=== PATIENT | female | born 1950 | race Caucasian/White ===

== ENCOUNTER 2017-01-24 17:09 | Emergency (ER) | payer OTHER ==
[~2017-01-24] VITALS: Ht 162.6 cm; Wt 88.3 kg
[~2017-01-24 17:09] MED LIST: ASPI81TA28 PO; ATOR10TA88 PO; CLTP PO; EFFSR75 PO; LEVO100T84 PO; NAPR250T2 PO; OMEG10007 PO; PRLSR20 PO; VENL150C56 PO
[2017-01-24 17:13] VITALS: TEMP 36.7; Ht 162.6 cm; Wt 88.3 kg
[2017-01-24] MEDS ORDERED: HYDR12.55 PO (17:33)
[2017-01-24] MEDS ORDERED: CALC-354 PO (17:35)
[2017-01-24] MEDS ORDERED: LEVO100T7 PO (17:36)
[2017-01-24] MEDS ORDERED: VENL75CA73 PO (17:37)
[2017-01-24 18:58] VITALS: BP 143/82; PULSE 83; O2SAT 96
--- NOTE | 2017-01-24 19:13 | DIAGNOSTIC IMAGING REPORT ---
LEFT VENOUS DOPP LOWER EXT UNILAT CLINICAL HISTORY: LLE pain pain. Edema. TECHNIQUE: Venous Doppler COMPARISON STUDY: None FINDINGS: Normal study IMPRESSION: Normal study The above report was generated using voice recognition software. It may contain grammatical, syntax or spelling errors. Electronically signed by: Wilton Metzger M.D. 01/24/2017 7:12 PM Dictated Date/Time: 01/24/2017 7:11 PM
--- NOTE | 2017-01-24 19:16 | DIAGNOSTIC IMAGING REPORT ---
LEFT KNEE 1 OR 2 VIEWS ROUTINE CLINICAL HISTORY: L knee pain pain COMPARISON: None. DISCUSSION: The bones and joint spaces appear intact. There is no evidence of fracture, dislocation or bony disease. Minimal degenerative change. Minimal reactive osteophytes from the superior patella IMPRESSION: Minimal degenerative change. No acute process. The above report was generated using voice recognition software. It may contain grammatical, syntax or spelling errors. Electronically signed by: Wilton Metzger M.D. 01/24/2017 7:15 PM Dictated Date/Time: 01/24/2017 7:15 PM
--- NOTE | 2017-01-24 20:02 | EMERGENCY ROOM VISIT NOTE ---
ED Visit Note First contact with patient: 17:51 I have personally evaluated this patient examined her and reviewed the pertinent labs and data. I have discussed the case with Floyd Guzman, the physician assistant womens volleyball coach and agree with the plan. Please refer to the PA note. This patient comes in with pain in the posterior left knee. It got worse after some minimal trauma. She has no redness or warmth or swelling. Nothing to suggests an infection. The joint x-rays were unremarkable. on my exam, she is neurologically and neurovascularly intact with 2+ distal pulses. Ultrasound was unremarkable of the leg shows no evidence of DVT. X-rays were unremarkable. This may be more of a ligamentous or muscular strain. She should follow up with the orthopedist or regular doctor this week for recheck.
--- NOTE | 2017-01-24 23:27 | EMERGENCY ROOM VISIT NOTE ---
History First contact with patient: 17:51 Chief Complaint: LEG PAIN,LEG INJURY Stated Complaint: PAIN IN LEFT LEG History of Present Illness The patient is a 67 year old female who presents to the Emergency Room with complaints of left knee pain. The patient reports that she was walking up steps this afternoon and felt something pop in her knee. However, the patient reports that she also has had pain radiating from her left buttock to her ankle over the past 1.5 weeks. She denies any significant history of chronic back pain, but does know that she has arthritis in her neck and back. She has seen a chiropractor in the past for her back. The patient reports that she had a right knee arthroscopy performed last fall by Dr. Hoffmann for a torn meniscus. The patient denies any history of significant left knee arthritis or pain. The patient denies any left lower extremity weakness, foot drop, saddle anesthesias or bladder/bowel difficulties/incontinence. Weightbearing worsens the patient' s discomfort to a 10 out of 10. She currently rates her discomfort a 7 out of 10 on my exam. Review of Systems 10 system review was performed and was negative except for pertinent positives and negatives as indicated in history of present illness Past Medical/Surgical History Medical Problems: (1) Depressive Disorder Nec (2) GERD (gastroesophageal reflux disease) Surgical Problems: (1) History of arthroscopy of right knee (2) History of carpal tunnel release Family History FH: cancer FH: diabetes mellitus FH: gallbladder disease FH: heart disease FH: hypertension Social History Smoking Status: Never Smoker Alcohol Use: none Marital Status: Occupation Status: retired Current/Historical Medications Scheduled Aspirin (Aspirin Ec), 81 MG PO DAILY Atorvastatin (Lipitor), 10 MG PO QPM Calcium Carbonate-Cholecalcife (Caltrate 600+D), 1 TAB PO BID Fish Oil ([place]-3), 1 CAP PO BID Hydrochlorothiazide (Hydrochlorothiazide), 12.5 MG PO DAILY Levothyroxine Sodium (Levothyroxine Sodium), 100 MCG PO DAILY Omeprazole (Prilosec), 20 MG PO DAILY Venlafaxine Hcl (Effexor Extended Rel), 150 MG PO DAILY Venlafaxine Hcl (Venlafaxine Extended Rel), 75 MG PO DAILY Miscellaneous Medications Naproxen (Naprosyn), 250 MG PO Allergies Coded Allergies: Penicillins (Verified Allergy, Unknown, 01/24/17) Sulfa Drugs (Verified Allergy, Unknown, 01/24/17) Physical Exam Vital Signs Date Time Temp Pulse Resp B/P (MAP) Pulse Ox O2 Delivery O2 Flow Rate FiO2 01/24/17 18:58 83 18 143/82 96 Room Air 01/24/17 17:13 36.7 88 16 150/77 95 Room Air Physical Exam CONSTITUTIONAL: Healthy and well nourished. Alert and oriented X 3 with positive affect. Patient does not appear in any acute distress on exam. HEENT: Normocephalic, atraumatic. Pupils equal, round and reactive. NECK: Full active range of motion without discomfort. RESPIRATORY: Clear to auscultation bilaterally with no wheezing, crackles, rhonchi or stridor. CARDIOVASCULAR: Regular rate and rhythm with no murmurs, rubs or gallops. GASTROINTESTINAL: Bowel sounds present in all quadrants. MUSCULOSKELETAL: Examination of the left knee does not show any obvious joint effusion, ecchymosis or deformity. She has no focal tenderness through the joint lines. She has mild tenderness over the posterior knee and hamstrings. She also has mild tenderness through the upper gastrocnemius region. The muscle is soft and supple. No tenderness to palpation through the Achilles tendon. She has no knee ligamentous instability on exam, and has full range of motion without discomfort or crepitance. Peripatellar tenderness to palpation. Negative logroll. Negative sitting straight leg raise. No focal tenderness to palpation through the left SI joint or sciatic notch. Pedal pulses are intact. Ankle plantar/dorsiflexion strength is 5 out of 5 and symmetric bilaterally. INTEGUMENTARY: No rash or other significant dermatologic conditions noted. NEUROLOGIC: No focal neurologic deficits noted. Lower extremity deep tendon reflexes are 2+ and symmetric bilaterally. Left foot and toes are sensory intact. Medical Decision & Procedures ER Provider Diagnostic Interpretation: My interpretation of left knee x-rays shows minimal degenerative changes without evidence for obvious joint effusion, fractures or dislocation. Radiologist report is as follows: LEFT KNEE 1 OR 2 VIEWS ROUTINE CLINICAL HISTORY: L knee pain pain COMPARISON: None. DISCUSSION: The bones and joint spaces appear intact. There is no evidence of fracture, dislocation or bony disease. Minimal degenerative change. Minimal reactive osteophytes from the superior patella IMPRESSION: Minimal degenerative change. No acute process. Venous ultrasound of the left lower extremity is negative for deep vein thrombosis. Radiologist report is as follows: LEFT VENOUS DOPP LOWER EXT UNILAT CLINICAL HISTORY: LLE pain pain. Edema. TECHNIQUE: Venous Doppler COMPARISON STUDY: None FINDINGS: Normal study IMPRESSION: Normal study ED Course Patient history and physical exam were performed. Nurse's notes were reviewed. Vital signs were reviewed and normal. The patient refused any analgesics on initial exam. X-rays of the left knee were normal. Venous ultrasound of the left lower extremity was negative for deep vein thrombosis. I did advise the patient that her pain could be from several different etiologies, including tendinitis, internal derangement of the left knee, lumbar radiculitis or other musculoskeletal etiologies of the leg. Her venous ultrasound was negative for deep vein thrombosis. The patient reports that she still has crutches at home from her prior knee x-ray. She refused any immobilizer. She was encouraged to alternate ibuprofen and Tylenol for pain relief. She refused any prescription analgesics. She will follow up with Dr. Hoffmann for further reevaluation and management. The patient was happy with plan of care, voiced understanding of all discharge instructions, and rated her pain a 5 out of 10 at the conclusion of my exam. Medical Decision See previous section Impression Primary Impression: Pain of left lower extremity Departure Information Referrals Janell Royal PA-C (PCP) Patient Instructions My [facility]
== END 2017-01-24 20:10 | disposition home or self-care (01) ==
LOC: C.EDB 17:09 → C.EDD 20:10
DX: M25.562 Pain in left knee (principal); F32.9 Major depressive disorder, single episode, unspecified; K21.9 Gastro-esophageal reflux disease without esophagitis; Z96.651 Presence of right artificial knee joint; Z79.82 Long term (current) use of aspirin; Z79.899 Other long term (current) drug therapy; Z88.0 Allergy status to penicillin; Z88.2 Allergy status to sulfonamides; Z80.9 Family history of malignant neoplasm, unspecified; Z83.79 Family history of other diseases of the digestive system; Z83.3 Family history of diabetes mellitus; Z82.49 Family history of ischemic heart disease and other diseases of the circulatory system

== ENCOUNTER → 2017-03-27 | Outpatient (CLI) | payer OTHER ==
[~2017-03-27] MED LIST changes: +CALC-354 PO; -CLTP PO; -EFFSR75 PO; +HYDR12.55 PO; +LEVO100T7 PO; -LEVO100T84 PO; +VENL75CA73 PO
--- NOTE | 2017-03-27 16:09 | MAMMOGRAPHY REPORT ---
BILATERAL DIGITAL SCREENING MAMMOGRAM TOMOSYNTHESIS WITH CAD: 03/27/2017 CLINICAL HISTORY: Routine screening. Patient has no complaints. TECHNIQUE: Breast tomosynthesis in addition to standard 2D mammography was performed. Current study was also evaluated with a Computer Aided Detection (CAD) system. COMPARISON: Comparison is made to exams dated: 03/26/2015 mammogram, 08/17/2013 mammogram, 03/17/2012 tod mogram, 01/30/2011 mammogram, 12/05/2009 mammogram - [facility], and 11/17/2008. BREAST COMPOSITION: The tissue of both breasts is heterogeneously dense, which may obscure small mas ses. FINDINGS: No suspicious masses, calcifications, or areas of architectural distortion are noted in ei ther breast. There has been no significant interval change compared to prior exams. IMPRESSION: ACR BI-RADS CATEGORY 1: NEGATIVE There is no mammographic evidence of malignancy. A 1 year screening mammogram is recommended. The pa tient will receive written notification of the results. Approximately 10% of breast cancers are not detected with mammography. A negative mammographic report should not delay biopsy if a clinically suggestive mass is present. Mireille Cruz M.D. ah/:03/27/2017 15:15:51 Social Insurance Administrator: Karen BOLANOS(Anton)(M), [facility] letter sent: Normal 1/2 BI-RADS Code: ACR BI-RADS Category 1: Negative
== END | disposition home or self-care (01) ==
LOC: C.MAMM 14:23
PROVIDERS: ATTEND Physician Assistant
DX: Z12.31 Encounter for screening mammogram for malignant neoplasm of breast (principal)

== ENCOUNTER → 2018-02-08 | Outpatient (CLI) | payer OTHER ==
[~2018-02-08] MED LIST changes: +ALPPOPS5 OP; +ATOR10TA82 PO; -ATOR10TA88 PO; +BIMA0.01 OP; +DORZ1SOL6 OP; -NAPR250T2 PO
--- NOTE | 2018-02-08 12:03 | DIAGNOSTIC IMAGING REPORT ---
CHEST 2 VIEWS ROUTINE CLINICAL HISTORY: Preoperative chest COMPARISON STUDY: No previous studies for comparison. FINDINGS: The cardiac and mediastinal contours are normal. There is no evidence of focal pulmonary consolidation. There is no evidence of failure. No pleural effusions are visualized.[ IMPRESSION: No active disease in the chest. Electronically signed by: Del Lopez M.D. 02/08/2018 12:02 PM Dictated Date/Time: 02/08/2018 11:59 AM
[2018-02-08 12:45] LABS: BASO % 0.7 %; BASO ABS # 0.04 K/uL (0-0.2); EOS % 2.7 %; EOS ABS # 0.15 K/uL (0-0.5); HEMATOCRIT 41.9 % (37-47); HEMOGLOBIN 14.6 g/dL (12.0-16.0); IG# 0.02 K/uL (0.00-0.02); LYMPH % 28.6 %; LYMPH ABS # 1.61 K/uL (1.2-3.4); MEAN CELL VOLUME 90.1 fL (80-100); MEAN CORPUSCULAR HEMOGLOBIN 31.4 pg (25-34); MEAN CORPUSCULAR HGB CONC 34.8 g/dl (32-36); MEAN PLATELET VOLUME 9.6 fL (7.4-10.4); MONO % 8.2 %; MONO ABS # 0.46 K/uL (0.11-0.59); NEUT % 59.4 %; NEUT ABS # 3.35 K/uL (1.4-6.5); PLATELET COUNT 236 K/uL (130-400); RED CELL DISTRIBUTION WIDTH CV 13.2 % (11.5-14.5); RED CELL DISTRIBUTION WIDTH SD 42.8 fL (36.4-46.3); WHITE BLOOD COUNT 5.63 K/uL (4.8-10.8)
[2018-02-08 12:56] LABS: PTT PATIENT 25.1 SECONDS (21.0-31.0)
[2018-02-08 13:02] LABS: BLOOD UREA NITROGEN 16 mg/dl (7-18); CALCIUM 9.2 mg/dl (8.5-10.1); CARBON DIOXIDE 28 mmol/L (21-32); CREATININE 1.06 mg/dl (0.60-1.20); GLUCOSE 262 mg/dl (70-99); POTASSIUM 3.9 mmol/L (3.5-5.1); SODIUM 136 mmol/L (136-145)
== END | disposition home or self-care (01) ==
LOC: C.RAD 11:09
PROVIDERS: ATTEND Orthopaedic Surgery
DX: Z01.818 Encounter for other preprocedural examination (principal)

== ENCOUNTER 2018-02-27 13:27 | Emergency (ER) | payer OTHER ==
[~2018-02-27] VITALS: Ht 162.6 cm; Wt 80.9 kg
[~2018-02-27 13:27] MED LIST changes: +GLC/500 PO
[2018-02-27 13:45] VITALS: TEMP 36.7; Ht 162.6 cm; Wt 80.9 kg
[2018-02-27 14:37] LABS: HEMATOCRIT 40.8 % (37-47); HEMOGLOBIN 14.3 g/dL (12.0-16.0); MEAN CELL VOLUME 88.3 fL (80-100); MEAN PLATELET VOLUME 9.3 fL (7.4-10.4); PLATELET COUNT 244 K/uL (130-400); RED CELL DISTRIBUTION WIDTH CV 12.9 % (11.5-14.5); RED CELL DISTRIBUTION WIDTH SD 41.9 fL (36.4-46.3)
[2018-02-27 15:05] LABS: ALBUMIN 3.8 gm/dl (3.4-5.0); CALCIUM 8.9 mg/dl (8.5-10.1); CREATININE 1.07 mg/dl (0.60-1.20); POTASSIUM 3.4 mmol/L (3.5-5.1); TOTAL PROTEIN 7.5 gm/dl (6.4-8.2)
[2018-02-27] MEDS ORDERED: ATV/1 PO (15:44)
[2018-02-27 15:56] VITALS: BP 132/91; PULSE 79; O2SAT 97
--- NOTE | 2018-02-27 16:33 | EMERGENCY ROOM VISIT NOTE ---
History Report prepared by Fredrick: Elisabeth Deluna Under the Supervision of: Dr. Bubba Burger M.D. 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 She states she is currently feeling the way she felt last year when she was diagnosed with hypothyroidism. She states she cries for no reason and cannot stop. She does not know why she feels this way as she is taking medications for her hypothyroidism and depression. The patient reports she is going to have knee surgery 1 week from today but this is not causing her much stress. She does note she found out 1 week field captain that she is a diabetic. She states she is "worried about everything." The patient denies any past or current SI. Source of History: patient Onset: 1 month field captain Position: head, other (upper and lower extremities) Quality: other (anxiety) Timing: other (after finding out 1 week field captain she is a diabetic) Note: Negative SI Review of Systems See HPI for pertinent positives & negatives. A total of 10 systems reviewed and were otherwise negative. Past Medical & Surgical Medical Problems: (1) Depressive Disorder Nec (2) GERD (gastroesophageal reflux disease) Surgical Problems: (1) History of arthroscopy of right knee (2) History of carpal tunnel release Family History FH: cancer FH: diabetes mellitus FH: gallbladder disease FH: heart disease FH: hypertension Social History Smoking Status: Never Smoker Alcohol Use: none Marital Status: Occupation Status: retired Current/Historical Medications Scheduled Aspirin (Aspirin Ec), 81 MG PO QAM Atorvastatin (Lipitor), 10 MG PO QPM Bimatoprost (Lumigan), 1 DROPS OP HS Brimonidine Tartrate (Alphagan P), 1 DROPS OP BID Calcium Carbonate-Cholecalcife (Caltrate 600+D), 1 TAB PO BID Dorzolamide Hcl-Timolol Maleat (Cosopt Oph), 1 DROPS OP BID Fish Oil ([place]-3), 1 CAP PO BID Hydrochlorothiazide (Hydrochlorothiazide), 12.5 MG PO QAM Levothyroxine Sodium (Levothyroxine Sodium), 100 MCG PO QAM Metformin Hcl (Glucophage), 500 MG PO DAILY Omeprazole (Prilosec), 20 MG PO QAM Venlafaxine Hcl (Effexor Extended Rel), 150 MG PO QAM Venlafaxine Hcl (Venlafaxine Extended Rel), 75 MG PO QAM Scheduled PRN Lorazepam (Ativan), 1 MG PO BID PRN for Anxiety/Agitation Allergies Coded Allergies: Penicillins (Verified Allergy, Unknown, unknown, 02/04/18) Sulfa Drugs (Verified Allergy, Unknown, rash, 02/04/18) Physical Exam Vital Signs Date Time Temp Pulse Resp B/P (MAP) Pulse Ox O2 Delivery O2 Flow Rate FiO2 02/27/18 15:56 79 16 132/91 97 Room Air 02/27/18 13:45 36.7 77 18 146/87 98 Room Air Physical Exam GENERAL: Patient is tearful and somewhat anxious. HEENT: No acute trauma, normocephalic atraumatic, mucous membranes moist, no nasal congestion, no scleral icterus. NECK: No stridor, no adenopathy, no meningismus, trachea is midline. LUNGS: Clear to auscultation bilaterally, no wheeze, no rhonchi, breath sounds equal. HEART: Without murmurs gallops or rubs, regular rate and rhythm. ABDOMEN: Soft, nontender, bowel sounds positive, no hernias, no peritonitis. EXTREMITIES: No cyanosis or edema, full range of motion of all the joints without pain or difficulty, no signs for acute trauma. NEUROLOGIC: Oriented x 3, no acute motor or sensory deficits, no focal weakness. SKIN: No rash, no jaundice, no diaphoresis. PSYCH: Tearful and anxious, denies suicidal thoughts, cooperative. Medical Decision & Procedures Laboratory Results 02/27/18 14:26 02/27/18 14:26 Test 02/27/18 13:52 02/27/18 14:26 Urine Color YELLOW Urine Appearance CLEAR (CLEAR) Urine pH 5.0 (4.5-7.5) Urine Specific [place] 1.012 (1.000-1.030) Urine Protein NEG (NEG) Urine Glucose (UA) NEG (NEG) Urine Ketones NEG (NEG) Urine Occult Blood NEG (NEG) Urine Nitrite NEG (NEG) Urine Bilirubin NEG (NEG) Urine Urobilinogen NEG (NEG) Urine Leukocyte Esterase TRACE (NEG) Urine WBC (Auto) 1-5 /hpf (0-5) Urine RBC (Auto) 0-4 /hpf (0-4) Urine Hyaline Casts (Auto) 0 /lpf (0-5) Urine Epithelial Cells (Auto) 20-30 /lpf (0-5) Urine Bacteria (Auto) NEG (NEG) Urine Opiates Screen NEG (NEG) Urine Methadone, Qualitative NEG (NEG) Urine Barbiturates NEG (NEG) Urine Phencyclidine (PCP) Level NEG (NEG) Ur Amphetamine/Methamphetamine NEG (NEG) MDMA (Ecstasy) Screen NEG (NEG) Urine Benzodiazepines Screen NEG (NEG) Urine Cocaine Metabolite NEG (NEG) Urine Marijuana (THC) NEG (NEG) Red Blood Count 4.62 M/uL (4.2-5.4) Mean Corpuscular Volume 88.3 fL (80-100) Mean Corpuscular Hemoglobin 31.0 pg (25-34) Mean Corpuscular Hemoglobin Concent 35.0 g/dl (32-36) RDW Standard Deviation 41.9 fL (36.4-46.3) RDW Coefficient of Variation 12.9 % (11.5-14.5) Mean Platelet Volume 9.3 fL (7.4-10.4) Anion Gap 8.0 mmol/L (3-11) Est Creatinine Clear Calc Drug Dose 50.4 ml/min Estimated GFR () 60.9 Estimated GFR (Non- 52.6 BUN/Creatinine Ratio 13.6 (10-20) Calcium Level 8.9 mg/dl (8.5-10.1) Total Bilirubin 0.4 mg/dl (0.2-1) Aspartate Amino Transf (AST/SGOT) 25 U/L (15-37) Alanine Aminotransferase (ALT/SGPT) 40 U/L (12-78) Alkaline Phosphatase 85 U/L (45-117) Total Protein 7.5 gm/dl (6.4-8.2) Albumin 3.8 gm/dl (3.4-5.0) Globulin 3.7 gm/dl (2.5-4.0) Albumin/Globulin Ratio 1.0 (0.9-2) Thyroid Stimulating Hormone (TSH) 0.495 uIu/ml (0.300-4.500) Free Thyroxine 1.22 ng/dl (0.80-1.60) Ethyl Alcohol mg/dL < 3.0 mg/dl (0-3) Laboratory results reviewed by me. ED Course 1349: The patient was evaluated in room A7. A complete history and physical exam was performed. 1540: I spoke to psychiatry case management. The patient has no criteria for an inpatient stay. She does not want to stay and is asking for some Ativan which she states has helped her in the past. 1542: I did a PDMP on the patient at this time. No issues identified. 1544: Reevaluated the patient. Discussed results and discharge instructions: She verbalized understanding and agreement. The patient is ready for discharge. Medical Decision Differential diagnosis: Etiologies such as anxiety, depression, situational anxiety, thyroid disorder, electrolyte imbalance, alcohol and drug abuse, suicidality, as well as others were entertained. There is no leukocytosis or concerning anemia. No significant electrolyte abnormality, kidney failure or hepatitis. The patient appears to be in a euthyroid state. Urinalysis does not show infection. Alcohol level is undetectable. Urine tox is negative. The patient presents with anxiety. She is not suicidal. Her laboratory workup was unrevealing. The patient was seen by the psychiatry case management group. The patient does not meet inpatient criteria. She does not want to stay in the hospital. She has done well in the past with a few Ativan for severe anxiety. A prescription was written. She will follow with her doctor next week. If things are worsening, if she feels suicidal, she will return. [place] Drug Monitoring Program Search Results: patient reviewed within database, no issues identified Medication Reconcilliation Current Medication List: was personally reviewed by me Blood Pressure Screening Patient's blood pressure: Elevated blood pressure Blood pressure disposition: Elevated BP felt to be situational Impression Primary Impression: Acute anxiety Scribe Attestation The scribe's documentation has been prepared under my direction and personally reviewed by me in its entirety. I confirm that the note above accurately reflects all work, treatment, procedures, and medical decision making performed by me. Departure Information Dispostion Home / Self-Care Prescriptions Lorazepam (ATIVAN) 1 Mg Tab 1 MG PO BID Y for Anxiety/Agitation, #10 TAB Prov: Bubba Burger M.D. 02/27/18 Referrals No Doctor, Assigned (PCP) Forms HOME CARE DOCUMENTATION FORM, IMPORTANT VISIT INFORMATION Patient Instructions My [facility] Additional Instructions may use ativan 1 tab as neede up to 2x per day for severe anxiety set up appt with the [place] [facility] this week lab work was all ok return for worsening symptoms or if feeling suicidal
== END 2018-02-27 15:59 | disposition home or self-care (01) ==
LOC: C.EDB 13:29 → C.EDA 15:59
DX: F41.9 Anxiety disorder, unspecified (principal); F32.9 Major depressive disorder, single episode, unspecified; K21.9 Gastro-esophageal reflux disease without esophagitis; E03.9 Hypothyroidism, unspecified; Z88.0 Allergy status to penicillin; Z88.2 Allergy status to sulfonamides; Z79.82 Long term (current) use of aspirin; Z79.899 Other long term (current) drug therapy

== ENCOUNTER 2018-03-05 04:58 | Inpatient (IN) | payer OTHER ==
[2018-02-04 07:59] VITALS: BMI 32.0
--- NOTE | 2018-02-08 11:11 | PAT Medication Instructions ---
Service Date Feb 08, 2018. Current Home Medication List Aspirin (Aspirin Ec), 81 MG PO QAM Atorvastatin (Lipitor), 10 MG PO QPM Bimatoprost (Lumigan), 1 DROPS OP HS Brimonidine Tartrate (Alphagan P), 1 DROPS OP BID Calcium Carbonate-Cholecalcife (Caltrate 600+D), 1 TAB PO BID Dorzolamide Hcl-Timolol Maleat (Cosopt Oph), 1 DROPS OP BID Fish Oil ([place]-3), 1 CAP PO BID Hydrochlorothiazide (Hydrochlorothiazide), 12.5 MG PO QAM Levothyroxine Sodium (Levothyroxine Sodium), 100 MCG PO QAM Omeprazole (Prilosec), 20 MG PO QAM Venlafaxine Hcl (Effexor Extended Rel), 150 MG PO QAM Venlafaxine Hcl (Venlafaxine Extended Rel), 75 MG PO QAM Medication Instructions For Your Scheduled Surgery - Hold the following medications 2 weeks prior to surgery: Fish Oil ([place]-3), 1 CAP PO BID - Hold the following medications the morning of surgery: Calcium Carbonate-Cholecalcife (Caltrate 600+D), 1 TAB PO BID Hydrochlorothiazide (Hydrochlorothiazide), 12.5 MG PO QAM - Take the following medications the morning of surgery with a sip of water: Aspirin (Aspirin Ec), 81 MG PO QAM Brimonidine Tartrate (Alphagan P), 1 DROPS OP BID Dorzolamide Hcl-Timolol Maleat (Cosopt Oph), 1 DROPS OP BID Levothyroxine Sodium (Levothyroxine Sodium), 100 MCG PO QAM Omeprazole (Prilosec), 20 MG PO QAM Venlafaxine Hcl (Effexor Extended Rel), 150 MG PO QAM Venlafaxine Hcl (Venlafaxine Extended Rel), 75 MG PO QAM - Take the following medications as scheduled the night before surgery: Atorvastatin (Lipitor), 10 MG PO QPM Bimatoprost (Lumigan), 1 DROPS OP HS Brimonidine Tartrate (Alphagan P), 1 DROPS OP BID Calcium Carbonate-Cholecalcife (Caltrate 600+D), 1 TAB PO BID Dorzolamide Hcl-Timolol Maleat (Cosopt Oph), 1 DROPS OP BID If you have any questions please call us at [phone] or [phone] or [phone]
[2018-02-08 11:16] VITALS: BMI 33.0
--- NOTE | 2018-03-03 08:19 | HISTORY & PHYSICAL EXAMINATION ---
DATE OF ADMISSION: 03/05/2018 CHIEF COMPLAINT: Primary osteoarthritis of the right knee. HISTORY OF PRESENT ILLNESS: Elsie is a 68-year-old female who underwent a right knee arthroscopy in 03/[address] Hoffmann for partial meniscectomy. Since the surgery, she has had continued knee pain. A repeat MRI did show advanced arthritis in the medial compartment of the right knee. After failing extensive conservative treatment including multiple injections and counseling, she elected to proceed with a right total knee arthroplasty. PAST MEDICAL HISTORY: Significant for nausea with anesthesia, hypothyroidism, depression, hyperlipidemia, and hypertension. PAST SURGICAL HISTORY: Significant for a partial meniscectomy done by Dr. Hoffmann in 2016, cataract surgery, and bilateral carpal tunnel releases. ALLERGIES: SULFA DRUGS, WHICH CAUSE A RASH, PENICILLIN, WITH AN UNKNOWN REACTION. MEDICATIONS: Include Effexor, hydrochlorothiazide, Synthroid, omeprazole, Lipitor, and eyedrops for glaucoma. FAMILY HISTORY: Significant for heart disease and diabetes. SOCIAL HISTORY: Patient is . Her is able to help take care of her at home. She has 3 children. She is mildly active. REVIEW OF SYSTEMS: She complains of right knee pain. All other pertinent review of systems negative. PHYSICAL EXAMINATION: GENERAL: She is awake, alert, and oriented x3. She is in no apparent distress. She is very pleasant. HEENT: Pupils equal, round, and reactive to light. Extraocular motions intact. Oral mucosa is pink and moist. CARDIOVASCULAR: The heart has regular rate per radial pulse. RESPIRATORY: The lungs demond symmetrically bilaterally, with no audible breath sounds. GASTROINTESTINAL: The abdomen is soft, nontender, nondistended. MUSCULOSKELETAL: On physical examination of the knee, she does have a trace effusion on exam. She has good motion from 0-120 degrees. She has no varus or valgus instability. She has significant tenderness to palpation along the medial joint line and over the distal medial femoral condyle. She has 3/5 muscle strength with knee extension. IMAGING: X-rays of the knee do show mild joint space narrowing, very small osteophyte formation, mostly of the medial compartment. The x-rays do not look too bad. MRI of the right knee does show advanced osteoarthritis in the medial compartment, with fluid in the distal medial femoral condyle and small osteochondral injury of the tibial plateau. IMPRESSION: Primary osteoarthritis of the right knee. PLAN: We will proceed with a [employer] right total knee arthroplasty. Postoperatively, she will be started on aspirin for DVT prophylaxis and kept overnight in the hospital for postop medical management. Plan to use [facility] upon discharge.
[2018-03-05] VITALS (9 sets, daily range): BP systolic 110–136; BP diastolic 68–87; PULSE 69–83; TEMP 36.6–37.1; O2SAT 92–99; Ht 162.6 cm; Wt 89.0 kg
[~2018-03-05] VITALS: Ht 162.6 cm; Wt 89.0 kg
[~2018-03-05 04:58] MED LIST changes: +ATV/1 PO
[2018-03-05] MEDS ORDERED: ACETAMINOPHEN 500 MG TAB PO SCH (06:00)
[2018-03-05] MEDS ORDERED: LACTATED RINGER'S 1000ML 1,000 ML IV SCH ×2 (06:00)
[2018-03-05] MEDS ORDERED: FAMOTIDINE 20 MG TAB PO SCH (06:00)
[2018-03-05] MEDS ORDERED: CEFAZOLIN 2000MG IV PUSH 15 ML IV SCH (06:00)
[2018-03-05] MEDS ORDERED: LACTATED RINGER'S 1000ML 500 ML IV SCH (06:00)
[2018-03-05] MEDS ORDERED: ROPIVACAINE 5MG/ML 30 ML 150 MG, BUPIVACAINE 0.5% MPF INJ 30 ML, EpINEphrine HCL INJ 0.... INFIL SCH ×8 (06:00)
[2018-03-05] MEDS ORDERED: GABAPENTIN 300 MG CAP PO SCH (06:00)
[2018-03-05] MEDS: TRANEXAMIC ACID INJ 1,000 MG x 2 Bags IV SCH ×4 (06:30→06:49)
[2018-03-05] MEDS ORDERED: BACITRACIN 50000 UNIT VIAL ONE (06:36)
[2018-03-05] MEDS ORDERED: ORTHO JOINT ANESTHETIC ONE (06:36)
[2018-03-05] MEDS ORDERED: BUPIVACAINE 0.5 % 5 MG/1 ML PF 10ML VIAL ONE (06:37)
[2018-03-05] MEDS ORDERED: DEXAMETHASONE SOD INJ 4 MG/ML VIAL ONE (06:38)
[2018-03-05] MEDS ORDERED: ROPIVACAINE 0.5% 5 MG/ML 30 ML VIAL ONE (06:38)
[2018-03-05] MEDS ORDERED: EpINEphrine INJ 1MG/ML AMP 1 MG/ML AMP ONE (06:38)
[2018-03-05] MEDS ORDERED: LIDOCAINE HCL 2% 2 ML VIAL (20MG/ML) ONE (06:43)
[2018-03-05] MEDS ORDERED: PROPOFOL IV EMULSION 10 MG/ML 20 ML VIAL ONE (06:43)
[2018-03-05] MEDS ORDERED: MIDAZOLAM HCL 1 MG/ML 2ML VIAL ONE ×2 (06:43→07:29)
--- NOTE | 2018-03-05 06:53 | History & Physical Bridge Note ---
H&P Re-Evaluation Bridge Note: I have examined the patient, reviewed the History & Physical and in the interval since the performance of the History & Physical I have noted the following changes of clinical significance: No changes noted
[2018-03-05] MEDS ORDERED: PHENYLEPHRINE HCL INJ 10 MG/ML VIAL ONE (07:55)
--- NOTE | 2018-03-05 08:23 | [facility] Post Operative Brief Note ---
Immediate Operative Summary Operative Date Mar 05, 2018. Pre-Operative Diagnosis Primary osteoarthritis of the right knee Post-Operative Diagnosis Primary osteoarthritis of the right knee Procedure(s) Performed Right total knee arthroplasty Surgeon Dr. Floyd Abdalla Book Sewing Machine Operator Surgeon(s) Harinder Coreas PA-C Estimated Blood Loss 20cc Findings Consistent with Post-Op Diagnosis Specimens A. Right knee bone and tissue Anesthesia Type MAC [facility]
[2018-03-05] MEDS ORDERED: EpHEDrine SULFATE INJ 50 MG/ML AMP IV PRN (08:30)
[2018-03-05] MEDS ORDERED: ATROPINE SULFATE 0.1 MG/ML 5ML SYR IV PRN (08:30)
[2018-03-05] MEDS ORDERED: FENTANYL CITRATE INJ 50 MCG/1 ML 2 ML VIAL IV PRN (08:30)
[2018-03-05] MEDS ORDERED: MAGNESIUM HYDROXIDE SUSP 30 ML UDC PO PRN (08:30)
[2018-03-05] MEDS ORDERED: GLUCAGON FOR INJ 1 MG VIAL SQ PRN (08:30)
[2018-03-05] MEDS ORDERED: ONDANSETRON INJ 2 MG/ML 2 ML VIAL IV PRN ×2 (08:30)
[2018-03-05] MEDS ORDERED: DEXTROSE 50% 50 ML SYR IV PRN (08:30)
[2018-03-05] MEDS ORDERED: METOCLOPRAMIDE HCL INJ 5 MG/ML 2 ML VIAL IV PRN (08:30)
[2018-03-05] MEDS ORDERED: OXYCODONE HCL IR 5 MG TAB (IMMEDIATE RELEASE) PO PRN (08:30)
[2018-03-05] MEDS ORDERED: BISACODYL 10 MG SUPP PR PRN (08:30)
[2018-03-05] MEDS ORDERED: GLUCOSE 10 TABS/TUBE PO PRN (08:30)
[2018-03-05] MEDS ORDERED: MoRPHine SULFATE 2 MG/ML CARP IV PRN (08:30)
[2018-03-05] MEDS ORDERED: GLUCOSE 40% GEL 15 GM TUBE PO PRN (08:30)
[2018-03-05] MEDS ORDERED: CARBOHYDRATES FOR HYPOGLYCEMIA PO PRN (08:30)
[2018-03-05] MEDS ORDERED: SOD PHOSPHATE/SOD BIPHOSPHATE ENEMA 132 ML BTL PR PRN (08:30)
[2018-03-05] MEDS ORDERED: PROMETHAZINE HCL INJ 6.25 MG in SODIUM CHLORIDE 0.9% 50ML 50 ML IV PRN (08:30)
[2018-03-05] MEDS ORDERED: PHARMACY GLYCEMIC MGMT CONSULT PRN (08:46)
--- NOTE | 2018-03-05 08:53 | OPERATIVE REPORT ---
DATE OF OPERATION: 03/05/2018 PREOPERATIVE DIAGNOSIS: Primary osteoarthritis of the right knee. POSTOPERATIVE DIAGNOSIS: Primary osteoarthritis of the right knee. PROCEDURE: Right total knee arthroplasty. SURGEON: Dr. Floyd Abdalla. WHITEPRINTING MACHINE OPERATOR: Harinder Coreas PA-C, whose assistance was necessary for retraction and closure. ANESTHESIA: Spinal with a right adductor nerve block and sedation. COMPLICATIONS: None. CONDITION: Stable to PACU. IMPLANTS USED: I used a [employer] Vanguard right total knee arthroplasty system with a size 65 femur, 67 tibia, a size 10 posterior stabilized polyethylene spacer and a 31 x 8 mm three-peg patella. All complements were cemented with Palacos-G cement. INDICATIONS: Elsie is a pleasant 68-year-old female who presented to my office with chronic increasing right knee pain. She had her knee scoped about a year ago which showed arthritis. Follow up MRI did show advanced arthritis of her knee. After failing extensive conservative treatment, she elected to undergo a right total knee arthroplasty. DESCRIPTION OF PROCEDURE: On 03/05/2018, she arrived at [facility] for the above procedure. She was seen in the preoperative holding area. The operative extremity was identified and signed. She was given a preoperative antibiotic, a spinal anesthetic and a right adductor nerve block. She was taken back to operating room table, laid on the table in supine position and put under basic sedation. The right knee was prepped and draped in sterile fashion. Time-out was done. The patient's operative extremity was properly identified. A midline incision was made directly over the patella. Dissection was taken down to the extensor mechanism and a medial parapatellar arthrotomy was used. The medial retinaculum was released. The fat pad was mostly left intact. The knee was then flexed. ACL, PCL and meniscus were removed. A drill was sent down the center of the femoral canal, followed by an intramedullary ivan. Off that ivan, a distal femoral cutting block was placed and 12 mm was resected off the distal femur at 5 degrees of valgus. A posterior referencing guide was used to measure the distal femur and the distal femur measured to be a size 65. Two drill holes were placed in 3 degrees of external rotation. A 4-in-1 cutting block was impacted into place. Anterior, posterior and chamfer cuts were then made. A box cutting guide was then impacted into place and the box was resected for the posterior stabilizing component. The proximal tibia was then exposed. A drill was sent down the center of the tibial canal followed by an intramedullary ivan. Off that ivan, a proximal tibial resection guide was placed and 3 mm was resected off the low medial side. The posterior aspect of the knee was then opened up and any osteophytes were removed as well as any remaining meniscal tissue. The tibia was then measured to be a size 67, it was set in the appropriate rotation and punched. Trial components were placed along with a size 10 polyethylene insert. The knee was brought through a full range of motion and felt to be stable. The patella was then everted, 8.5 mm was resected off the posterior aspect of the patella. Patella measured to be a size 31 and 3 peg holes were drilled. Trial components were then removed. Surrounding soft tissues were injected with 100 mL of an orthopedic pain control cocktail. Final components were then cemented in place with Palacos-G cement. The polyethylene insert was snapped into place and the anterior bar was locked. The knee was irrigated with 3 liters normal saline solution with bacitracin. The tourniquet was deflated and hemostasis was obtained. The extensor mechanism was then closed with #2 FiberWire suture in the superior medial aspect and #1 Vicryl, both proximally and distally. Skin was closed with 2-0 Vicryl, 3-0 V-Loc suture and brooke. She was placed in a soft compressive dressing and transferred to a hospital bed and taken to postanesthesia care unit in stable condition. She tolerated the procedure well. I attest to the content of the Intraoperative Record and any orders documented therein. Any exception s are noted below.
--- NOTE | 2018-03-05 09:01 | DIAGNOSTIC IMAGING REPORT ---
TWO VIEWS RIGHT KNEE CLINICAL HISTORY: Postoperative examination. FINDINGS: AP and crosstable lateral portable views of the right knee are obtained. A right knee arthroplasty is in near anatomic alignment. There has been undersurface remodeling of the patella. No acute fracture is seen. There are expected postoperative changes around the knee including skin clips, soft tissue edema, and subcutaneous gas. IMPRESSION: Expected postoperative changes status post right knee arthroplasty. No acute fracture is seen. Electronically signed by: Bubba Gore M.D. 03/05/2018 9:00 AM Dictated Date/Time: 03/05/2018 8:59 AM
--- NOTE | 2018-03-05 09:58 | Anesthesiology Progress Note ---
Anesthesia Post Op Note Date & Time Mar 05, 2018 at 09:58 Vital Signs Pain Intensity: 0 Vital Signs Past 12 Hours Date Time Temp Pulse Resp B/P (MAP) Pulse Ox O2 Delivery O2 Flow Rate FiO2 03/05/18 09:51 36.4 67 17 116/62 (84) 97 Nasal Cannula 2 03/05/18 09:40 129/67 03/05/18 09:38 68 19 98 03/05/18 09:38 69 19 03/05/18 09:37 68 15 03/05/18 09:37 67 15 100 03/05/18 09:35 116/65 03/05/18 09:32 67 18 03/05/18 09:32 66 18 98 03/05/18 09:30 125/69 03/05/18 09:27 67 17 100 03/05/18 09:27 68 17 03/05/18 09:25 128/67 03/05/18 09:22 66 15 03/05/18 09:22 66 15 100 03/05/18 09:20 125/68 03/05/18 09:17 70 20 98 03/05/18 09:17 72 20 03/05/18 09:16 68 15 99 03/05/18 09:16 68 15 03/05/18 09:15 118/67 03/05/18 09:11 66 18 100 03/05/18 09:11 66 18 03/05/18 09:10 126/73 03/05/18 09:06 70 15 100 03/05/18 09:06 70 15 03/05/18 09:05 129/65 03/05/18 09:04 72 15 100 03/05/18 09:04 70 15 03/05/18 09:00 126/70 03/05/18 08:59 73 17 03/05/18 08:59 74 17 100 03/05/18 08:55 122/67 03/05/18 08:54 70 17 03/05/18 08:54 69 17 100 03/05/18 08:53 71 16 03/05/18 08:53 70 16 100 03/05/18 08:50 122/64 03/05/18 08:48 76 17 100 03/05/18 08:48 76 17 03/05/18 08:45 120/60 03/05/18 08:43 74 19 03/05/18 08:43 73 19 100 03/05/18 08:40 116/61 03/05/18 08:38 36.3 74 16 114/65 (82) 98 Oxymask 10 03/05/18 08:38 73 15 114/65 100 03/05/18 08:38 73 15 03/05/18 05:39 36.7 78 20 136/87 96 Room Air Notes Mental Status: alert / awake / arousable, participated in evaluation Pt Amnestic to Procedure: Yes Nausea / Vomiting: adequately controlled Pain: adequately controlled Airway Patency, RR, SpO2: stable & adequate BP & HR: stable & adequate Hydration State: stable & adequate Neuraxial Anesthesia: was administered, sensory block is resolving Anesthetic Complications: no major complications apparent
[2018-03-05] MEDS: DORZOLAMIDE/TIMOLOL 22.3/6.8MG/ML 10 ML BTL OP SCH ×2 (11:15→20:25)
[2018-03-05] MEDS: VENLAFAXINE HCL XR 75 MG CAPXR PO SCH (12:32)
[2018-03-05] MEDS: VENLAFAXINE HCL XR 150 MG CAPXR PO SCH (12:33)
[2018-03-05] MEDS: MULTIVITAMIN TAB PO SCH (12:33)
[2018-03-05] MEDS: DOCUSATE SODIUM 100 MG CAP PO SCH ×2 (12:34→20:20)
[2018-03-05] MEDS: KETOROLAC TROMETHAMINE 15 MG/ML VIAL IV. SCH ×3 (12:34→23:44)
[2018-03-05] MEDS: HYDROCHLOROTHIAZIDE 25 MG TAB PO SCH (12:34)
[2018-03-05] MEDS: ASPIRIN 325 MG ECTAB PO SCH ×2 (12:35→20:21)
--- NOTE | 2018-03-05 12:42 | Pharmacy Progress Note ---
Glycemic Control Intl Consult Date of Service Mar 05, 2018. Scope Glycemic Pharmacist consulted by Dr Abdalla on 03/05/18 for glycemic control and to write orders per [facility] inpatient glycemic control protocol Objective Weight (Kilograms): 89.00 Accuchecks BSG (last 24hrs): Test 03/05/18 05:27 03/05/18 09:05 Bedside Glucose 114 mg/dl (70-90) 149 mg/dl (70-90) Recent Pertinent Medications Outpatient Anti-diabetic Regimen: * metformin 500 mg PO daily * A1c unknown Risk Factors for Insulin Resistance: * Steroids: Orthomix pre-op (contains DXM 4 mg) + DXM 4 mg IV in OR * Recent Surgery: R-TKA * Diet: T2DM Assessment & Plan ASSESSMENT: * 68 yr old female POD #0 s/p R-TKA. * Unknown level of outpatient glycemic control - A1c ordered for tomorrow. * Pt is maintained on oral antidiabetic agents as an outpatient (metformin). Will hold oral agents for admission and utilize SQ basal bolus insulin regimen which is the recommended regimen for inpatient glycemic control. * Will initiate weight based insulin dosing for insulin cristofer patient and titrate based on BSG trends. * Will target BSGs less than 150 mg/dL to decrease the risk of post-operative infection/complications. PLAN FOR INPATIENT GLYCEMIC CONTROL: * Holding outpatient oral diabetes medications * Basal insulin * Lantus 20 units SQ x 1 dose now * Lantus 0-10 units Sq tonight (0 units if BSG is <140, 5 units if BSG is 140- 180, 10 units if > 180) * Bolus Insulin * Novolog per scale ACHS or Q6hrs while NPO * Goal Range: Low 110 mg/dL - High 140 mg/dL * Correction Factor: 20 mg/dL/unit * Nutritional / Prandial insulin per carb ratio of 1 unit per 7 grams CHO consumed * Please note that the plan above was derived based on current level of insulin resistance and hospital stress. These recommendations are appropriate for inpatient admission only. Plan of care upon discharge will need to be reassessed to avoid potential outpatient hypo/hyperglycemia. Thank you.
[2018-03-05] MEDS: INSULIN ASPART 100 UNITS/ML 3 ML PEN SC SCH ×3 (12:50→21:44)
[2018-03-05] MEDS ORDERED: LANTUS PER UNIT CHARGE SQ ONE (13:00)
[2018-03-05] MEDS ORDERED: PNEUMOCOCCAL POLYSACCHARIDES 25 MCG/0.5 ML VIAL/SYR IM. ONE (14:00)
[2018-03-05] MEDS ORDERED: PNEUMOCOCCAL ADMINISTRATION CHARGE ONE (14:00)
[2018-03-05] MEDS: SODIUM CHLORIDE 0.9% 1000ML 1,000 ML IV SCH ×2 (14:25→20:25)
[2018-03-05] MEDS: CEFAZOLIN IV 2,000 MG in SYRINGE 0 ML IV SCH ×2 (14:32→22:09)
[2018-03-05] MEDS: ACETAMINOPHEN 500 MG TAB PO SCH ×2 (14:33→22:09)
--- NOTE | 2018-03-05 15:32 | Discharge Instructions ---
Discharge Instructions Date of Service Mar 05, 2018. Admission Reason for Admission: Right Knee Degenerative Joint Disease Discharge Discharge Diagnosis / Problem: Right Total Knee Discharge Goals Goal(s): Decrease discomfort, Improve function Activity Recommendations Activity Limitations: as noted below . Instructions / Follow-Up Instructions / Follow-Up Activity and Therapy Recommendations: * If you are using [facility] then Physical Therapy will be provided until they feel you are ready to start Outpatient Physical Therapy. If you are not using a Home Health agency then Outpatient Physical Therapy should start about 3-5 days from your day of surgery. Therapy will last about 6-10 weeks * It is important not to put a pillow under your knee when you are relaxing or sleeping. It is just as important to make sure you are getting your knee perfectly straight as it is to regain your knee bend. * You were shown a series of exercises in the hospital. Do these exercises three times each day including the exercises you were shown in physical therapy. * Get up and walk several times each day. For the first four weeks, try not to stand or walk for more than one hour at a time. If you do stand or walk for more than one hour, you will not hurt anything, but your leg will likely swell. * As you feel comfortable, you may change from the walker or crutches to a cane and then to independent walking. Medications: * Narcotic You will likely be sent home from the hospital with a prescription for the narcotic pain medication that worked best throughout your stay. * Aspirin Most patients will be required to take Aspirin 325mg twice a day for 6 weeks after surgery. This is obtained [id number] and a prescription is not necessary. * Other medications may be prescribed for specific circumstances. If you have any questions, please call the office at . * Resume previous home medications unless otherwise instructed TEDs/Elastic Stockings: The white elastic stockings help limit swelling and prevent blood clots from forming in your legs.~ The more you wear them, the more they work. Wear them for six weeks. Dressing Care: If the incision is not draining then you may leave the brooke open to air. If there is a little bit of drainage or if the brooke are getting stuck on your clothing then cover the incision with a dry dressing. The brooke will be removed at your 2 week follow-up appointment. Showering: You may shower 5 days from the day of surgery. Let the soapy shower water run over the brooke and pat them dry. Do not scrub or soak the incision. Things To Watch For: * Drainage from the incision site that occurs more than one week after your surgery. * Increased redness at the incision site. * Fever above 102 degrees Fahrenheit. * Unusual chest pain or shortness of breath. * Call [facility] at with any of the above problems Follow-Up Visit: Follow-up with Dr. Abdalla 2 weeks after your day of surgery. An appointment was probably scheduled when you signed-up for surgery in the office. If you have any questions call Office Instructions: More detailed instructions as well as Frequently Asked Questions were provided in a folder by our office when you signed-up for surgery. Please review these instructions when you get home. If you have any further questions or concerns, please feel free to call the office at [phone] Current Hospital Diet Patient's current hospital diet: Diabetes Type 2 Diet Discharge Diet Recommended Diet: Diabetes Type 2 Diet Procedures Procedures Performed: Right total knee arthroplasty Pending Studies Studies pending at discharge: no Medical Emergencies . Who to Call and When: Medical Emergencies: If at any time you feel your situation is an emergency, please call [phone] immediately. . Non-Emergent Contact Non-Emergency issues call your: Surgeon Call Non-Emergent contact if: wound has increased drainage, wound has increased redness . "Provider Documentation" section prepared by Floyd Abdalla. .
[2018-03-05] MEDS: LORAZEPAM 1 MG TAB PO PRN (20:31)
[2018-03-05] MEDS ORDERED: ATORVASTATIN 10 MG TAB PO SCH (21:00)
[2018-03-05] MEDS ORDERED: BIMATOPROST 0.01% OP SOLN 2.5 ML BTL OP SCH (21:00)
[2018-03-05] MEDS ORDERED: SENNA 8.6 MG TAB PO SCH (21:00)
[2018-03-05] MEDS ORDERED: LANTUS PER UNIT CHARGE SQ SCH (21:00)
[2018-03-06 03:00] VITALS: BP 108/67; PULSE 64; TEMP 36.3; O2SAT 98
[2018-03-06] MEDS: KETOROLAC TROMETHAMINE 15 MG/ML VIAL IV. SCH ×2 (05:57→12:51)
[2018-03-06] MEDS: ACETAMINOPHEN 500 MG TAB PO SCH (05:59)
[2018-03-06] MEDS ORDERED: LEVOTHYROXINE 100 MCG TAB PO SCH (06:00)
[2018-03-06] MEDS: SODIUM CHLORIDE 0.9% 1000ML 1,000 ML IV SCH (06:01)
[2018-03-06] MEDS: DORZOLAMIDE/TIMOLOL 22.3/6.8MG/ML 10 ML BTL OP SCH (06:05)
[2018-03-06 06:53] LABS: HEMATOCRIT 35.1 % (37-47); HEMOGLOBIN 11.8 g/dL (12.0-16.0); MEAN CELL VOLUME 89.1 fL (80-100); MEAN CORPUSCULAR HEMOGLOBIN 29.9 pg (25-34); MEAN CORPUSCULAR HGB CONC 33.6 g/dl (32-36); MEAN PLATELET VOLUME 9.2 fL (7.4-10.4); PLATELET COUNT 204 K/uL (130-400); WHITE BLOOD COUNT 11.05 K/uL (4.8-10.8)
[2018-03-06 07:08] LABS: HEMOGLOBIN A1C 6.9 % (4.5-5.6)
[2018-03-06 07:23] LABS: CALCIUM 8.2 mg/dl (8.5-10.1); CREATININE 0.84 mg/dl (0.60-1.20); POTASSIUM 3.2 mmol/L (3.5-5.1)
[2018-03-06 07:32] VITALS: O2SAT 91
[2018-03-06] MEDS ORDERED: TRAM-10 PO (07:44)
[2018-03-06] MEDS ORDERED: TRAMADOL HCL 50 MG TAB PO PRN (08:00)
[2018-03-06] MEDS ORDERED: ASPEC325 PO (08:07)
[2018-03-06 08:08] VITALS: BP 136/68; PULSE 67; TEMP 36.4; O2SAT 99
[2018-03-06 08:15] VITALS: BP 124/76; PULSE 67; TEMP 36.9; O2SAT 96
[2018-03-06] MEDS: VENLAFAXINE HCL XR 150 MG CAPXR PO SCH (08:45)
[2018-03-06] MEDS: VENLAFAXINE HCL XR 75 MG CAPXR PO SCH (08:47)
[2018-03-06] MEDS: ASPIRIN 325 MG ECTAB PO SCH (08:47)
[2018-03-06] MEDS: MULTIVITAMIN TAB PO SCH (08:47)
[2018-03-06] MEDS: HYDROCHLOROTHIAZIDE 25 MG TAB PO SCH (08:47)
[2018-03-06] MEDS: DOCUSATE SODIUM 100 MG CAP PO SCH (08:48)
[2018-03-06] MEDS: INSULIN ASPART 100 UNITS/ML 3 ML PEN SC SCH ×2 (08:52→12:57)
--- NOTE | 2018-03-06 08:58 | PROGRESS NOTE ---
DATE: 03/06/2018 CHIEF COMPLAINT: Status post right total knee arthroplasty, postop day #1. PROGRESS: Elsie was seen and examined at bedside today. Overall, she is doing very well. She has been up and ambulating to the bathroom. Her pain is well controlled. She has no complaints. PHYSICAL EXAMINATION: RIGHT KNEE: The dressing is clean and dry. Her leg is out in full extension. She has active dorsiflexion and plantarflexion of her right ankle and sensation is intact throughout. LABORATORY DATA: She has an H and H today of 11.8 and 35.1. Her glucose is 102. Her vital signs are all stable on room air and she is voiding on her own. X-rays postoperatively of the right knee show the prosthesis to be in anatomic alignment without any evidence of fracture, dislocation or loosening. IMPRESSION: Status post right total knee arthroplasty, postop day #1. PLAN: At this point, she is doing very well and happy with her progress. She will be seen by physical therapy today. I started on tramadol for pain control because we are concerned that the oxycodone might be able to too much. If she is doing well this afternoon, then she could be discharged to home with [facility].
[2018-03-06] MEDS ORDERED: PANTOprazole SOD 40 MG TAB PO SCH (09:00)
--- NOTE | 2018-03-06 09:35 | DISCHARGE SUMMARY ---
DISCHARGE DIAGNOSIS: Primary osteoarthritis of the right knee. PROCEDURE: Right total knee arthroplasty on 03/05/[address] Floyd Abdalla. DISCHARGE INSTRUCTIONS: 1. Tramadol 50 mg every 6 hours as needed for pain. 2. Weightbear as tolerated. 3. Follow up with Dr. Abdalla in 2 weeks. 4. Call the office of Dr. Abdalla with any questions or concerns. 5. Aspirin 325 mg twice a day for 6 weeks. 6. LASHON hose stockings for 6 weeks. 7. Lipitor 10 mg daily. 8. Lumigan 1 drop at night. 9. Hydrochlorothiazide 12.5 mg daily. 10. Synthroid 100 mcg daily. 11. Ativan 1 mg twice a day as needed. 12. Glucophage 500 mg daily. 13. Prilosec 20 mg daily. 14. Effexor 225 mg daily. HOSPITAL COURSE: Elsie is a pleasant 68-year-old female who presented to my office with chronic increasing right knee pain. She had a recent knee arthroscopy which showed arthritis. Follow up MRI then showed advanced arthritis of the right knee. After failing extensive conservative treatment, she elected to undergo a right total knee arthroplasty. On 03/05/2018, she arrived at [facility] and underwent a right total knee arthroplasty without complication. She had a spinal anesthetic and a right adductor nerve block. Postoperatively, she was discharged to general orthopedic floors. She was started on aspirin for DVT prophylaxis. Her hospital course was uneventful. On postop day #1, her H and H was stable at 11.8 and 35.1. She was up and ambulating well with physical therapy and her pain was well controlled. She was subsequently discharged to home with [facility] and the above instructions.
[2018-03-06] MEDS: LORAZEPAM 1 MG TAB PO PRN (10:26)
[2018-03-06 11:42] VITALS: BP 132/68; PULSE 72; TEMP 36.5; O2SAT 99
[2018-03-06 12:14] VITALS: BP 132/68; PULSE 72; TEMP 36.5; O2SAT 99
== END 2018-03-06 13:44 | disposition home or self-care (01) | DRG 470 ==
LOC: C.ACU 04:58 → C.3E 06:30 → ENRESERV 09:51
PROVIDERS: ADMIT Orthopaedic Surgery; ATTEND Orthopaedic Surgery
PROC: 0SRC0J9 Replacement of Right Knee Joint with Synthetic Substitute, Cemented, Open Approach (ICD-10-PCS; principal; 2018-03-05 07:00)
DX: M17.11 Unilateral primary osteoarthritis, right knee (principal); E03.9 Hypothyroidism, unspecified; F32.9 Major depressive disorder, single episode, unspecified; E78.5 Hyperlipidemia, unspecified; I10 Essential (primary) hypertension; H40.9 Unspecified glaucoma; Z79.82 Long term (current) use of aspirin; Z79.899 Other long term (current) drug therapy; Z88.0 Allergy status to penicillin; Z88.2 Allergy status to sulfonamides